=== PATIENT | male | born 1970 | race Caucasian/White ===

== ENCOUNTER 2017-12-04 10:32 | Day surgery (SDC) | payer BC ==
[~2017-12-04 10:32] MED LIST: ACETAMINOPHEN 1,000 MG/100 ML BTL IV ONE; CEFAZOLIN 2 Gram 2 GM/50 ML BAG IVPB ONE
[2017-12-04] MEDS ORDERED: EPINEPHRINE 1 MG/ML AMPUL SQ ONE (10:33)
[2017-12-04] MEDS ORDERED: BUPIVACAINE 0.5% W/EPI MPF 30 ML VIAL IVP ONE (10:33)
[2017-12-04] MEDS ORDERED: KETOROLAC 30 MG/ML VIAL IVP ONE (10:33)
[2017-12-04] MEDS ORDERED: MIDAZOLAM HCL 2MG/2ML VIAL IV ONE (10:33)
[2017-12-04] MEDS ORDERED: MECLIZINE 25 MG TABLET PO ONE (10:33)
[2017-12-04] MEDS ORDERED: METOCLOPRAMIDE 10 MG TABLET PO ONE (10:33)
[2017-12-04] MEDS ORDERED: ONDANSETRON HCL IV 4 MG/2 ML VIAL IVP ONE (10:33)
[2017-12-04] MEDS ORDERED: DEXAMETHASONE 4 MG/ML 1ML VIAL IVP ONE (10:33)
[2017-12-04] MEDS ORDERED: FENTANYL PF 100MCG/2ML VIAL IV ONE (10:33)
[2017-12-04] MEDS ORDERED: FAMOTIDINE 20MG TABLET PO ONE (10:33)
[2017-12-04] MEDS ORDERED: BUPIVACAINE LIPOSOME/PF 133MG/10ML VIAL IV ONE (10:33)
[2017-12-04] MEDS ORDERED: ROCURONIUM BROMIDE 50MG/5ML VIAL IV ONE (10:33)
[2017-12-04] MEDS ORDERED: PROPOFOL 10 MG/ML VIAL IV ONE (10:33)
[2017-12-04] MEDS ORDERED: SUCCINYLCHOLINE 20 MG/ML 10ML IVP ONE (10:33)
--- NOTE | 2017-12-07 20:50 | Operative Note ---
DATE OF SURGERY: 12/04/2017. PREOPERATIVE DIAGNOSES: 1. Left shoulder SLAP lesion. 2. AC joint arthrosis. 3. Impingement/tendinitis. POSTOPERATIVE DIAGNOSES: 1. Left shoulder SLAP lesion. 2. AC joint arthrosis. 3. Impinging tendinitis. PROCEDURE: 1. Diagnostic arthroscopy. 2. Arthroscopic debridement of Type II SLAP lesion. 3. Arthroscopic biceps tenodesis. 4. Arthroscopic acromioplasty. 5. Arthroscopic excision of the distal clavicle, 1 cm. SURGEON: Hernán Brothers M.D. ANESTHESIA: General endotracheal, HIGH SCHOOL DIRECTOR. COMPLICATIONS: None. BLOOD LOSS: Minimal. OPERATIVE FINDINGS: Type II SLAP lesion, frayed biceps tendon. AC joint arthrosis. Impinging tendinitis. COMPONENTS PLACED: One 4.75 mm Regenesorb anchor with two #2 Ultrabraid sutures. INDICATIONS FOR OPERATION: This is a 46-year-old male who is well known to myself. He is status post the same surgery on the right shoulder years ago, he had a Type II SLAP lesion and did well afterwards. He had failed nonoperative treatment including anti-inflammatories, injection, and therapy and now he's scheduled for the same procedures on the left. I explained the risks and benefits of surgery in detail for the diagnoses and procedures including but not limited to infection, nerve injury, vessel injury, persistent pain, stiffness, numbness and tingling in his shoulder, re-tear of his rotator cuff, need for further procedures and all of his questions were answered. Rehab and course were outlined and he agreed to proceed. PROCEDURE: The patient was brought to the O.R. and placed in the beach chair position for the proper surgery. LMA anesthesia was induced and his left upper extremity and shoulder were prepped and draped in sterile fashion. The left shoulder was prepped again with ChloraPrep after it was draped. Intraoperative time-out was performed. Next, the glenohumeral joint, subacromial space, and AC joint were injected with 0.5% Marcaine with Epinephrine. A standard posterior arthroscopic portal was established 2.0 cm inferior and 1.0 cm medial to the posterolateral corner of the acromion. An anterior portal was established through the rotator interval under direct visualization and diagnostic arthroscopy performed. The biceps tendon distally was normal, however, proximally it was frayed at the anchoring point and in the labrum was a Type II SLAP lesion tear with a small labral flap fully within the joint. The posterior/superior labrum again frayed and partially torn. The posterior and inferior labrum were normal. The glenohumeral head articular cartilage was normal. The undersurface of the rotator cuff was thoroughly inspected and was normal. The superior and middle glenohumeral ligaments were intact. The subscap tendon and subscap recess were normal. Anterior inferior labrum and glenohumeral ligaments were normal. Next, we proceed with biceps tenodesis. We debrided the upper biceps groove to the articular margin lightly to the bleeding bone surface in preparation for biceps tenodesis and debrided the labrum to a smooth stable surface. Next, we established an accessory anterior lateral portal using a spinal needle at the top of the biceps groove. We made a small stab incision there. We inserted the punch tap at the upper bicipital groove to prepare the hole and inserted the anchor, burying it beneath the surface of the bone. Next, we penetrated through the accessory anterior lateral portal directly into the biceps tendon mid substance, grasped one limb of suture and brought it back. We released the loop on the side of the biceps, placed the penetrator back through that loop and then grasped the corresponding suture to bring that through the loop, effectively lassoing it laterally. In the exact same fashion, we did this with the other suture set medially. Next, we tied them down through the disposable cannula in the anterior portal using a Revo knot, backed it up to reverse in on the post rows. We then cut and released the biceps tendon. It was stable and this was carried up and prepared into the upper biceps groove. We debrided again for the labrum. Next, anterior and posterior subacromial portals were established. The tissue ablator was inserted in the anterior subacromial portal and subacromial bursectomy was performed. I outlined the anterolateral edge of the acromion and coracoacromial ligament completely and opening the inferior AC joint capsule. Next, the lateral portal was established off the posterior margin of the AC joint and we inserted a shaver there and resected the bursal curtain around the periphery of the rotator cuff and acromion. Next, we inserted a bur there and took off strips of bone working from lateral to medial, anterior to posterior, converting the type II acromion to a planar surface. We used a rasp to smooth the subacromial surface and verified it was flat with a probe from the posterior portal. Next, we inserted the bur into the anterior portal and burred down the medial acromial facet. We resected the distal clavicle 1.0 cm and made small stab incision superior to the AC joint. We inserted the shaver there and smoothed both bony surfaces verifying the AC joint was completely free of any bony impingement or bony fragments. Next, we resected any further bursa and thoroughly inspected the bursal surface of the rotator cuff and the top of the cuff was intact. There was no evidence of any partial or full-thickness tears here. This completed our procedures. Scope and equipment were removed. The incision was covered with Xeroform gauze and the shoulder was injected with 0.5% Marcaine with Epinephrine and Exparel. Sterile dressing applied and UltraSling. The patient tolerated the procedures well. No intraoperative complications. All sponge, needle, and blade counts correct. Recovery room stable, neurovascularly intact. He will be discharged as an outpatient. He will have [facility] therapy nurse. He will follow up in two weeks. cc: Dr. Leandro Vang JOB NUMBER: [id number] MTDD
== END 2017-12-04 16:15 | disposition home or self-care (01) ==
LOC: SUR 10:32
PROVIDERS: ATTEND Orthopaedic Surgery
DX: M19.012 Primary osteoarthritis, left shoulder (principal); M75.42 Impingement syndrome of left shoulder; I10 Essential (primary) hypertension; G47.33 Obstructive sleep apnea (adult) (pediatric)
CPT/HCPCS: C1713; C9290; J0171; J0330; J1885; J2405

== ENCOUNTER 2018-03-23 05:53 | Day surgery (SDC) | payer BC ==
[2018-03-23] MEDS ORDERED: MECLIZINE 25 MG TABLET PO ONE (05:54)
[2018-03-23] MEDS ORDERED: PROPOFOL 10 MG/ML VIAL IV ONE (05:54)
[2018-03-23] MEDS ORDERED: BUPIVACAINE 0.25% MPF 30ML VIAL IVP ONE (05:54)
[2018-03-23] MEDS ORDERED: BUPIVACAINE LIPOSOME/PF 133MG/10ML VIAL IV ONE (05:54)
[2018-03-23] MEDS ORDERED: FAMOTIDINE 20MG TABLET PO ONE (05:54)
[2018-03-23] MEDS ORDERED: DEXAMETHASONE 4 MG/ML 1ML VIAL IVP ONE ×2 (05:54)
[2018-03-23] MEDS ORDERED: LIDOCAINE 2% MDV (20MG/ML) 20ML VIAL IV ONE (05:54)
[2018-03-23] MEDS ORDERED: METOCLOPRAMIDE 10 MG TABLET PO ONE (05:54)
[2018-03-23] MEDS ORDERED: DIPHENHYDRAMINE HCL 50 MG/ML VIAL IVP ONE (05:54)
[2018-03-23] MEDS ORDERED: KETOROLAC 30 MG/ML VIAL IVP ONE (05:54)
[2018-03-23] MEDS ORDERED: FENTANYL PF 100MCG/2ML VIAL IV ONE (05:54)
[2018-03-23] MEDS ORDERED: MIDAZOLAM HCL 2MG/2ML VIAL IV ONE (05:54)
[2018-03-23] MEDS ORDERED: METHYLPREDNISOLONE 40MG/VIAL IM ONE (05:54)
[2018-03-23] MEDS ORDERED: BUPIVACAINE 0.5% W/EPI MPF 30 ML VIAL IVP ONE (05:54)
[2018-03-23] MEDS ORDERED: ONDANSETRON HCL IV 4 MG/2 ML VIAL IVP ONE (05:54)
[2018-03-23] MEDS ORDERED: CEFAZOLIN 2 Gram 2 GM/50 ML BAG IVPB ONE (06:00)
--- NOTE | 2018-03-23 20:44 | Operative Note ---
DATE OF SURGERY: 03/23/2018. PREOPERATIVE DIAGNOSES: LEFT SHOULDER BICEPS TENDINITIS, CAPSULITIS. STATUS POST ARTHROSCOPIC DEBRIDEMENT TYPE II SLAP LESION AND BICEPS TENODESIS, ACROMIOPLASTY, AND EXCISION OF DISTAL CLAVICLE. POSTOPERATIVE DIAGNOSES: LEFT SHOULDER BICEPS TENDINITIS, CAPSULITIS. STATUS POST ARTHROSCOPIC DEBRIDEMENT TYPE II SLAP LESION AND BICEPS TENODESIS, ACROMIOPLASTY, AND EXCISION OF DISTAL CLAVICLE. PROCEDURE: 1. DIAGNOSTIC ARTHROSCOPY. 2. ARTHROSCOPIC DEBRIDEMENT OF ADHESIONS, ABLATION OF NEOVASCULARIZATION. 3. ARTHROSCOPIC SUBACROMIAL DECOMPRESSION. 4. MANIPULATION UNDER ANESTHESIA. SURGEON: SHAWN NASH M.D. ANESTHESIA: LMA. CJ, CUSTOMER SUCCESS MANAGER. COMPLICATIONS: NONE. ESTIMATED BLOOD LOSS: MINIMAL. OPERATIVE FINDINGS: Severe inflammation and neovascularization predominately intraarticularly but also on the subacromial surface. Biceps upper groove was well-scarred in. Biceps tendon was not visualized intraarticularly. Upper bicipital groove was opened up. There was absolutely no loose suture intraarticularly or in the upper biceps groove. INDICATIONS FOR OPERATION: This is a 47-year-old male who is status post arthroscopic acromioplasty with excision of the distal clavicle, debridement of Type II SLAP lesion, and biceps tenodesis. He had the exact same procedure in the other shoulder and did fine with that but with this shoulder, he has had persistent pain. He is three months post surgery. We tried anti-inflammatories, injections, therapy to no avail and he is scheduled for a repeat surgery with thoughts he may have a loose suture intraarticularly and/or biceps tendinitis. I explained the risks and benefits thoroughly in detail for the diagnoses and procedures including but not limited to infection, nerve injury, vessel injury, persistent pain, stiffness, numbness and tingling in his shoulder, need for further procedures, the fact that the biceps tendon could pull down further and cause a Mike muscle to form and the fact that it would be cosmetic only and cause no functional problems and all his questions were answered. Rehab and course were outlined and he agreed to proceed. PROCEDURE: The patient was brought to the O.R. and placed in the beach chair position for the proper surgery. LMA anesthesia was induced after interscalene block was performed with Exparel and his left upper extremity and shoulder were prepped and draped in sterile fashion. The left shoulder was prepped again with ChloraPrep after it was draped. Intraoperative time-out was performed. Preoperative range of motion revealed good range of motion. He had flexion to 150 to 160, abduction to 140. External rotation with the arm to the side was 60 to 70. Cross-arm abduction about 50. Internal rotation was to T12. Next, the glenohumeral joint and subacromial space were injected with 0.5% Marcaine with Epinephrine. A standard posterior arthroscopic portal was established through his previous incisions and the anterior portal was established. Diagnostic arthroscopy was performed. Immediately evident was significant neovascularization and inflammation in the anterior structures. The anterior capsule, middle glenohumeral ligament, subscap tendon all inflamed. There was no evidence of any loose suture directly visualized in the upper bicipital groove. It was scarred in nicely as expected after the procedure. There is nothing loose floating around intraarticularly. The biceps tendon was not evidence intraarticularly either. The superior labrum status post debridement was normal. The posterior superior labrum was normal. The axillary recess was normal. The posterior inferior labrum was normal. The glenohumeral head articular cartilage was completely normal. The undersurface of the rotator cuff was thoroughly inspected and again, completely normal from the biceps tendon all the way posterior and inferior to the barrier, completely normal, no evidence of any partial tears even. The superior and middle glenohumeral ligaments were intact. The subscap tendon and subscap recess were normal. The anterior inferior labrum, other than the inflammation, was normal. The most predominance of the inflammation was all in the anterior structures and neovascularization. Next, we inserted the tissue ablator and lightly ablated on the coag only very lightly some of the neovascularization and inflammation in the anterior structures, the middle glenohumeral ligament, the capsule predominately superiorly, labrum, and some of the cuff. We plan on inspecting the upper bicipital groove from the extraarticular surface , from the bursal surface to see if there are any loose sutures there. Next, the anterior and posterior subacromial portals were established. A tissue ablator was inserted into the anterior subacromial portal and we ablated some of the adhesions and scar. There was some inflammation here but not as much as intraarticularly, neovascularization. Next, we established a lateral portal and an anterior lateral portal and then put the scope back intraarticularly after subacromial decompression and debridement was performed removing some minimal adhesions. Next, inserted a spinal needle in the upper biceps groove and from the bursal surface. We then move the scope from articular back to the bursal surface in the anterior lateral portal and opened up the upper biceps groove with an ablator, making a small 0.5 cm opening there to inspect to see if there was any loose suture there and there was not and the suture was not evident at all and the biceps tendon was not evident and was likely scarred in further below. However, the patient does not have any Mike muscle-appearing deformity clinically. Next, we continued to remove some of the bursa and the adhesions anteriorly with a shaver and some of the inflammation with the ablator lightly. This completed our procedures. The scope was inserted intraarticularly. We inserted the spinal needle intraarticularly now, removed the scope and then we injected the intraarticular with 0.5% Marcaine with Epinephrine, 80 mg DepoMedrol, and Exparel mixture. He also received Decadron IV and Toradol. A sterile dressing was applied. The patient tolerated the procedures well. No intraoperative complications. All sponge, needle, and blade counts were correct. Recovery room stable, neurovascularly intact. He will be discharged as an outpatient, start therapy right away, and follow-up in two weeks. cc: Dr. Leandro Vang JOB NUMBER: [id number] MTDD
== END 2018-03-23 10:15 | disposition home or self-care (01) ==
LOC: SUR 05:53
PROVIDERS: ATTEND Orthopaedic Surgery
DX: M75.22 Bicipital tendinitis, left shoulder (principal); M75.02 Adhesive capsulitis of left shoulder; Z98.890 Other specified postprocedural states; I10 Essential (primary) hypertension; G47.33 Obstructive sleep apnea (adult) (pediatric)
CPT/HCPCS: 29825; 29826; 29806; 01630; 64415; J1885; J2405; J3010; J0690; C9290; 76942; J1030; J1200